=== PATIENT | female | born 1950 | race Caucasian/White ===

== ENCOUNTER 2020-06-17 23:26 | Emergency (ER) | payer OTHER ==
[2020-06-18 00:57] LABS: Absolute Lymphocytes (CBC) 1.1 K/uL (0.7-4.9); Basophils % 0.2 % (0-1.3); Hematocrit 38.6 % (36.0-45.0); Lymphocytes % 9.2 % (15.3-44.8); MPV 8.6 fL (7.6-11.3); RBC Red Blood Cell Count 4.35 M/uL (3.86-4.86)
[2020-06-18 01:09] LABS: Albumin 3.7 g/dL (3.4-5.0); Bilirubin Direct 0.1 mg/dL (0-0.2); Bilirubin Total 0.4 mg/dL (0.2-1.0); Potassium 4.2 mmol/L (3.5-5.1); Protein, Total 6.9 g/dL (6.4-8.2)
[2020-06-18 01:13] LABS: Urine Bacteria <20 /HPF (<20); Urine RBC <5 /HPF (NONE SEEN); Urine Urothelial Cells <5 /HPF (NONE SEEN)
[2020-06-18 01:14] LABS: Urine Specific Gravity 1.025 (1.005-1.030)
[2020-06-18 01:15] LABS: Urine Blood TRACE (NEG); Urine Glucose NEGATIVE (NEG); Urine Protein NEGATIVE (NEG)
[2020-06-18] MEDS ORDERED: KETOROLAC 30 MG/ML INJ ONE (01:59)
--- NOTE | 2020-06-18 02:32 | ER ---
Nurse's Notes [facility] Name: Tresa Zuniga Age: 69 yrs Sex: Female : 1950 Arrival Date: 06/17/2020 Time: 23:40 Bed 16 Private MD: Diagnosis: Calculus of ureter Presentation: 06/17 23:51 Chief complaint: Patient states: she is having right lower abdominal pain radiating to bb the back since approx 1500 today with nausea, pt has hx of kidney stones. Coronavirus screen: At this time, the client does not indicate any symptoms associated with coronavirus-19. Ebola Screen: No symptoms or risks identified at this time. Initial Sepsis Screen: Does the patient meet any 2 criteria? No. Patient's initial sepsis screen is negative. Does the patient have a suspected source of infection? No. Patient's initial sepsis screen is negative. Risk Assessment: Do you want to hurt yourself or someone else? Patient reports no desire to harm self or others. Onset of symptoms was June 17, 2020. 23:51 Method Of Arrival: Ambulatory bb 23:51 Acuity: HOLLAND 3 bb Triage Assessment: 23:54 General: Appears uncomfortable, Behavior is calm, cooperative. Pain: Complains of pain bb in abdomen Pain currently is 5 out of 10 on a pain scale. Neuro: Level of Consciousness is awake, alert, obeys commands, Oriented to person, place, time, situation. Respiratory: Respiratory effort is even, unlabored. GI: Abdomen is non-distended, Reports lower abdominal pain, nausea. Derm: Skin is pink, warm \T\ dry. Musculoskeletal: Circulation, motion, and sensation intact. Historical: - Allergies: 23:54 No Known Allergies; bb - Home Meds: 23:54 losartan oral oral [Active]; Allopurinol Oral [Active]; Vesicare oral oral [Active]; bb - PMHx: 23:54 Hypertension; Kidney stones; bb - PSHx: 23:54 Lithotripsy; Hysterectomy; ; bb - Immunization history:: Adult Immunizations up to date. - Social history:: Smoking status: Patient denies any tobacco usage or history of. Screenin/23 00:00 Abuse screen: Denies threats or abuse. Nutritional screening: No deficits noted. jb4 Tuberculosis screening: No symptoms or risk factors identified. Fall Risk None identified. Assessment: 00:00 General: Appears in no apparent distress. uncomfortable, Behavior is calm, cooperative, jb4 appropriate for age. Pain: Complains of pain in right low back Pain radiates to right lower quadrant Pain currently is 8 out of 10 on a pain scale. Neuro: Level of Consciousness is awake, alert, obeys commands, Oriented to person, place, time, situation. Cardiovascular: Patient's skin is warm and dry. Respiratory: Airway is patent Respiratory effort is even, unlabored. GI: Abdomen is round non-distended. : No signs and/or symptoms were reported regarding the genitourinary system. EENT: No signs and/or symptoms were reported regarding the EENT system. Derm: Skin is intact, Skin is pink, warm \T\ dry. Musculoskeletal: Circulation, motion, and sensation intact. Range of motion: intact in all extremities. 01:00 Reassessment: Patient appears in no apparent distress at this time. Patient and/or jb4 family updated on plan of care and expected duration. Pain level reassessed. Patient is alert, oriented x 3, equal unlabored respirations, skin warm/dry/pink. 02:00 Reassessment: Patient appears in no apparent distress at this time. Patient and/or jb4 family updated on plan of care and expected duration. Pain level reassessed. Patient is alert, oriented x 3, equal unlabored respirations, skin warm/dry/pink. Patient states feeling better. 02:50 Reassessment: Patient appears in no apparent distress at this time. Patient and/or jb4 family updated on plan of care and expected duration. Pain level reassessed. Patient is alert, oriented x 3, equal unlabored respirations, skin warm/dry/pink. Vital Signs: 06/17 23:51 BP 166 / 82; Pulse 76; Resp 16 S; Temp 98.5(O); Pulse Ox 96% on R/A; Weight 111.13 kg bb (R); Height 5 ft. 11 in. (180.34 cm) (R); Pain 09/02; 06/18 00:50 BP 148 / 67; Pulse 63; Resp 16; Pulse Ox 96% on R/A; jb4 01:45 BP 153 / 89; Pulse 63; Resp 18; Pulse Ox 97% on R/A; jb4 02:30 BP 116 / 97; Pulse 64; Resp 16; Pulse Ox 96% on R/A; jb4 06/17 23:51 Body Mass Index 34.17 (111.13 kg, 180.34 cm) ED Course: 06/17 23:40 Patient arrived in ED. cf2 23:52 Triage completed. bb 23:54 Arm band placed on Patient placed in an exam room, on a stretcher, on pulse oximetry. bb 06/18 00:00 Patient has correct armband on for positive identification. Bed in low position. Call jb4 light in reach. Side rails up X 1. Pulse ox on. NIBP on. 00:12 Price Fernandez MD is Attending Physician. tw4 00:12 Nacho Fong, ZAHEER is Primary Nurse. jb4 00:38 Initial lab(s) drawn, by ca, sent to lab. Urine collected: clean catch specimen, clear. jb4 Inserted saline lock: 20 gauge in left antecubital area, using aseptic technique. Blood collected. 01:41 CT Stone Protocol In Process Unspecified. EDMS 02:31 Shawn Palma MD is Referral Physician. tw4 02:51 No provider procedures requiring assistance completed. IV discontinued, intact, jb4 bleeding controlled, No redness/swelling at site. Pressure dressing applied. Administered Medications: 01:45 Drug: Ketorolac 15 mg Route: IVP; Site: left antecubital; jb4 02:40 Follow up: Response: No adverse reaction; Pain is decreased; RASS: Alert and Calm (0) jb4 02:40 Not Given (Patient Refused): morphine 4 mg IVP once; RASS on ADMIN: Combtv4, Very jb4 Agttd3, Agttd2, Rstlss1, AlertClm0, Drwsy-1, Lt Sdtn-2, Mod Sdtn-3, Dp Sdtn-4, UnArsble-5 02:40 Not Given (Patient Refused): Zofran (Ondansetron) 4 mg IVP once; over 2 minutes jb4 Outcome: 02:31 Discharge ordered by . tw4 02:51 Discharged to home ambulatory. jb4 02:51 Condition: stable 02:51 Discharge instructions given to patient, Instructed on discharge instructions, follow up and referral plans. medication usage, Demonstrated understanding of instructions, follow-up care, medications, Prescriptions given X 4. 02:51 Patient left the ED. jb4 Signatures: Dispatcher [employer] EDZara Ricci RN RN bb Bryson, James, RN RN jb4 Price Fernandez MD MD tw4 Keiry Michelle 2
--- NOTE | 2020-06-18 02:32 | EDPHYS ---
Physician Documentation [facility] Name: Tresa Zuniga Age: 69 yrs Sex: Female : 1950 Arrival Date: 06/17/2020 Time: 23:40 Bed 16 Private MD: ED Physician Price Fernandez HPI: 06/18 04:32 This 69 yrs old Female presents to ER via Ambulatory with complaints of RT tw4 LOWER BACK PAIN, Abdominal Pain. 04:32 The patient presents with abdominal pain right lower quadrant. Onset: The tw4 symptoms/episode began/occurred today. The symptoms radiate to the left flank. Associated signs and symptoms: none. The symptoms are described as sharp. Modifying factors: The symptoms are alleviated by nothing, the symptoms are aggravated by nothing. The patient has not experienced similar symptoms in the past. Historical: - Allergies: 06/17 23:54 No Known Allergies; bb - Home Meds: 23:54 losartan oral oral [Active]; Allopurinol Oral [Active]; Vesicare oral oral [Active]; bb - PMHx: 23:54 Hypertension; Kidney stones; bb - PSHx: 23:54 Lithotripsy; Hysterectomy; ; bb - Immunization history:: Adult Immunizations up to date. - Social history:: Smoking status: Patient denies any tobacco usage or history of. ROS: 06/18 04:32 Constitutional: Negative for fever, chills, and weight loss, Eyes: Negative for injury, tw4 pain, redness, and discharge, Cardiovascular: Negative for chest pain, palpitations, and edema, Respiratory: Negative for shortness of breath, cough, wheezing, and pleuritic chest pain, Abdomen/GI: Negative for abdominal pain, nausea, vomiting, diarrhea, and constipation, MS/Extremity: Negative for injury and deformity, Skin: Negative for injury, rash, and discoloration, Neuro: Negative for headache, weakness, numbness, tingling, and seizure. Back: Positive for flank pain, on the left. Exam: 04:32 Constitutional: This is a well developed, well nourished patient who is awake, alert, tw4 and in no acute distress. Head/Face: Normocephalic, atraumatic. Chest/axilla: Normal chest wall appearance and motion. Nontender with no deformity. No lesions are appreciated. Cardiovascular: Regular rate and rhythm with a normal S1 and S2. No gallops, murmurs, or rubs. Normal PMI, no JVD. No pulse deficits. Respiratory: Lungs have equal breath sounds bilaterally, clear to auscultation and percussion. No rales, rhonchi or wheezes noted. No increased work of breathing, no retractions or nasal flaring. Abdomen/GI: Soft, non-tender, with normal bowel sounds. No distension or tympany. No guarding or rebound. No evidence of tenderness throughout. Skin: Warm, dry with normal turgor. Normal color with no rashes, no lesions, and no evidence of cellulitis. MS/ Extremity: Pulses equal, no cyanosis. Neurovascular intact. Full, normal range of motion. Neuro: Awake and alert, GCS 15, oriented to person, place, time, and situation. Cranial nerves II-XII grossly intact. Motor strength 5/5 in all extremities. Sensory grossly intact. Cerebellar exam normal. Normal gait. 04:32 Back: pain, that is mild, ROM is normal. Vital Signs: 06/17 23:51 BP 166 / 82; Pulse 76; Resp 16 S; Temp 98.5(O); Pulse Ox 96% on R/A; Weight 111.13 kg bb (R); Height 5 ft. 11 in. (180.34 cm) (R); Pain 5/10; 06/18 00:50 BP 148 / 67; Pulse 63; Resp 16; Pulse Ox 96% on R/A; jb4 01:45 BP 153 / 89; Pulse 63; Resp 18; Pulse Ox 97% on R/A; jb4 02:30 BP 116 / 97; Pulse 64; Resp 16; Pulse Ox 96% on R/A; jb4 06/17 23:51 Body Mass Index 34.17 (111.13 kg, 180.34 cm) bb MDM: 00:12 Patient medically screened. tw4 04:34 Differential diagnosis: Peptic Ulcer Disease, Perf. Duodenal Ulcer, Perf. Gastric tw4 Ulcer, Peritonitis, Pyelonephritis. Data reviewed: vital signs, nurses notes. Data interpreted: Pulse oximetry: Interpretation: normal. Counseling: I had a detailed discussion with the patient and/or guardian regarding: the historical points, exam findings, and any diagnostic results supporting the discharge/admit diagnosis. Medication response: morphine relieved the patient's pain. Symptoms have resolved, Toradol relieved patient's pain. The symptoms have resolved. Special discussion: I discussed with the patient/guardian in detail that at this point there is no indication for admission to the hospital. It is understood, however, that if the symptoms persist or worsen the patient needs to return immediately for re-evaluation. 06/18 00:12 Order name: Basic Metabolic Panel tw4 06/18 00:12 Order name: CBC with Diff tw4 06/18 00:12 Order name: Hepatic Function tw4 06/18 00:12 Order name: Lipase tw4 06/18 00:12 Order name: Urine Microscopic Only 06/18 00:48 Order name: Urine Dipstick--Ancillary (enter results) ar5 06/18 00:12 Order name: IV Saline Lock; Complete Time: 00:57 4 06/18 00:12 Order name: Labs collected and sent; Complete Time: 00:58 06/18 00:12 Order name: Urine Dipstick-Ancillary (obtain specimen); Complete Time: 00:46 06/18 00:49 Order name: Urine Dipstick-Ancillary EDMS 06/18 01:06 Order name: CT Stone Protocol tw4 Administered Medications: 01:45 Drug: Ketorolac 15 mg Route: IVP; Site: left antecubital; jb4 02:40 Follow up: Response: No adverse reaction; Pain is decreased; RASS: Alert and Calm (0) jb4 02:40 Not Given (Patient Refused): morphine 4 mg IVP once; RASS on ADMIN: Combtv4, Very jb4 Agttd3, Agttd2, Rstlss1, AlertClm0, Drwsy-1, Lt Sdtn-2, Mod Sdtn-3, Dp Sdtn-4, UnArsble-5 02:40 Not Given (Patient Refused): Zofran (Ondansetron) 4 mg IVP once; over 2 minutes jb4 Disposition: 06/18/20 02:31 Discharged to Home. Impression: Calculus of ureter. - Condition is Stable. - Discharge Instructions: Renal Colic, Kidney Stones, [id number]. - Prescriptions for Tylenol- Codeine #3 300-30 mg Oral Tablet - take 2 tablet by ORAL route every 6 hours As needed; 30 tablet. Zofran 4 mg Oral Tablet - take 1 tablet by ORAL route every 12 hours As needed; 6 tablet. Flomax 0.4 mg Oral Capsule, Sust. Release 24 hr - take 1 capsule by ORAL route once daily 1/2 hour following the same meal each day; 30 capsule. Tramadol 50 mg Oral Tablet - take 1 tablet by ORAL route every 8 hours as needed; 12 tablet. - Medication Reconciliation Form, Thank You Letter, Antibiotic Education, Prescription Opioid Use form. - Follow up: Private Physician; When: Upon discharge from the Emergency Department; Reason: Recheck today's complaints, Continuance of care, Re-evaluation by your physician. Follow up: Shawn Palma MD; When: Upon discharge from the Emergency Department; Reason: Recheck today's complaints, Continuance of care, Re-evaluation by your physician. - Problem is new. - Symptoms have improved. Signatures: Dispatcher [employer] EDMS Zara Carias RN RN Nacho Bennett RN RN jb4 Price Fernandez MD MD tw4 Corrections: (The following items were deleted from the chart) 02:31 02:31 06/18/2020 02:31 Discharged to Home. Impression: Calculus of ureter. Condition is tw4 Stable. Forms are Medication Reconciliation Form, Thank You Letter, Antibiotic Education, Prescription Opioid Use. Follow up: Private Physician; When: Upon discharge from the Emergency Department; Reason: Recheck today's complaints, Continuance of care, Re-evaluation by your physician. Problem is new. Symptoms have improved. tw4 02:51 02:31 06/18/2020 02:31 Discharged to Home. Impression: Calculus of ureter. Condition is jb4 Stable. Forms are Medication Reconciliation Form, Thank You Letter, Antibiotic Education, Prescription Opioid Use. Follow up: Private Physician; When: Upon discharge from the Emergency Department; Reason: Recheck today's complaints, Continuance of care, Re-evaluation by your physician. Follow up: Shawn Palma; When: Upon discharge from the Emergency Department; Reason: Recheck today's complaints, Continuance of care, Re-evaluation by your physician. Problem is new. Symptoms have improved. tw4
[2020-06-18 05:04] VITALS: TEMP 98.5
[2020-06-18 05:08] VITALS: BP 116/97; O2SAT 96
--- NOTE | 2020-06-18 13:58 | RAD REPORT ---
EXAM DESCRIPTION: CT - Stone Protocol - 06/18/2020 6:34 am CLINICAL HISTORY: PAIN TECHNIQUE: Contiguous axial images obtained through the abdomen and pelvis without IV contrast. Brian nal and sagittal reformatted images were provided. This exam was performed according to our departmental dose-optimization program, which includes autom ated exposure control, adjustment of the mA and/or kV according to patient size and/or use of iterati ve reconstruction technique. COMPARISON: None available for comparison. FINDINGS: Lung bases: Bibasilar subsegmental atelectasis/pleural parenchymal scar. Right lower lobe calcified granuloma. The heart is enlarged. Small hiatal hernia. Liver: 1.4 cm right posterior hepatic cyst. Gallbladder and biliary system: Unremarkable Pancreas: Grossly unremarkable Spleen: Grossly unremarkable Adrenals: Unremarkable Kidneys: Moderate right hydronephrosis and proximal hydroureter. 7 mm proximal right ureteral calculu s (series 201 image 86, series 202 image 53 and series 203 image 53). Parapelvic cysts on the left. Bowel: No obstruction. No appreciable mucosal thickening. Appendix: Normal caliber appendix. No findings to suggest acute appendicitis. Urinary bladder: Unremarkable Reproductive: There has been a hysterectomy. No adnexal cysts or masses are identified. Lymph nodes: No pathologically enlarged lymph nodes. Peritoneum: No focal fluid collection. No free air. Vessels: No abdominal aortic aneurysm. Abdominal wall: Small fat-containing umbilical hernia. Bones: Multilevel spondylosis. No acute fracture. IMPRESSION: 1. Moderately obstructing 7 mm proximal right ureteral calculus. 2. Other findings as above. Electronically signed by: Yumiko Jane MD 06/18/2020 1:59 AM MARKET RISK ANALYST Due to temporary technical issues with the PACS/Fluency reporting system, reports are being signed by the in house radiologists without review as a courtesy to insure prompt reporting. The interpreting radiologist is fully responsible for the content of the report.
== END 2020-06-18 02:51 | disposition home or self-care (01) ==
LOC: ER 23:26
DX: N20.1 Calculus of ureter (principal); I10 Essential (primary) hypertension; Z87.442 Personal history of urinary calculi
CPT/HCPCS: 36415; 74176; 76377; 80048; 80076; 81003; 81015; 83690; 85025; 96374; 99284

== ENCOUNTER 2020-06-19 10:31 | Day surgery (SDC) | payer OTHER ==
[2020-06-19] MEDS ORDERED: AMPICILLIN SODIUM 2 GM in NA CHLORIDE 0.9% 100 ML IVPB ONE (11:00)
[2020-06-19] MEDS ORDERED: Gentamicin Inj 320 MG in NA CHLORIDE 0.9% 100 ML IVPB ONE (11:00)
[2020-06-19] MEDS ORDERED: FENTANYL CITR 100 MCG/2 ML ONE ×2 (11:34→13:47)
[2020-06-19] MEDS ORDERED: MIDAZOLAM HCL 2 MG/2 ML INJ ONE (11:34)
[2020-06-19] MEDS ORDERED: propofoL 200 MG/20 ML VIAL IV ONE ×2 (11:34→13:46)
[2020-06-19] MEDS ORDERED: LIDOCAINE 1% MPF 5 ML VIAL ONE ×2 (11:34→13:46)
--- NOTE | 2020-06-19 11:35 | RAD REPORT ---
EXAM DESCRIPTION: Tushar Martinez (2 Views)06/19/2020 11:04 am CLINICAL HISTORY: Preop COMPARISON: 2017 FINDINGS: Calcified granuloma left lung. The lungs appear clear of acute infiltrate. The heart is borderline enlarged IMPRESSION: No acute abnormalities displayed
[2020-06-19] MEDS ORDERED: CEFAZOLIN/SWI 1gm 1 GM/10 ML SYR ONE (13:46)
[2020-06-19] MEDS ORDERED: Ringers Lactate 1,000 ML IV ONE (13:46)
[2020-06-19] MEDS ORDERED: PHENAZOPYRIDINE 100MG TAB PO ONE ×2 (15:11→16:21)
[2020-06-19] MEDS ORDERED: HYDROCODONE/APAP 5/325 MG TAB PO PRN (15:11)
--- NOTE | 2020-06-19 15:17 | RAD REPORT ---
EXAM DESCRIPTION: RAD - Urethrocystogrphy Retrograde - 06/19/2020 3:12 pm CLINICAL HISTORY: CYSTO COMPARISON: PELVIS dated 01/28/2015 FINDINGS: Total fluoro time: 0.9 minutes.
[2020-06-19 17:32] VITALS: O2SAT 98
[2020-06-19 18:07] VITALS: BP 122/52; TEMP 97.2
--- NOTE | 2020-06-19 19:40 | OP ---
Surgeon: MARILYN CHAVEZ Preoperative Diagnosis: 1) Right obstructive ureterolithiasis 2) Complicated urinary tract infection. Postoperative Diagnosis: 1) Right obstructive ureterolithiasis 2) Complicated urinary tract infection. Principal Procedure: 1. Cystoscopy. 2. Right retrograde pyelography. 3. Right ureteral stent placement. Indication For Procedure: Ms. Zuniga presented to the Urology Clinic today in followup of her emergency department visit 3 days ago with an obstructing right ureteral calculus, approximately 7 mm in diameter. She was discharged from the emergency department, but in the interim had a fever up to 101 degrees Fahrenheit. Because of the concern for possible development of sepsis associated with an obstructing calculus, she was recommended for urgent right ureteral stent placement. Procedure In Detail: The patient was consented in the preoperative holding area before being transferred to the operative suite where general anesthesia using an LMA was induced. She was given gentamicin 320 mg and ampicillin 2 g IV antimicrobial prophylaxis. She was placed in the lithotomy position, padded and secured to the table appropriately. Her genitalia was prepped using Hibiclens, and she was draped in standard fashion. The case was begun using a 22-Cuban rigid cystoscope to traverse the urethra and into the bladder with ease. The bladder was decompressed of a relatively clear urine with minimal debris. It was also surveyed in its entirety, and there were no mucosal lesions, foreign bodies, or stones noted throughout. The ureteral orifices were orthotopic in location, and the right ureteral orifice was then cannulated using the tip of a Sensor wire to guide entry of a 5-Cuban ureteral access catheter. Right retrograde pyelography: Using a 70:30 mixture of Omnipaque and saline, contrast was injected via the lumen of the 5-Cuban ureteral access catheter and did propagate up the ureter to a point of obstruction in the mid ureter. With additional bolus of contrast injection, we were able to get the contrast and navigate around the point of obstruction and eventually enter the pelvis and lower pole of the kidney. The evident obstruction in the mid ureter did seem to be dislodged at that point at least into the proximal ureter where a filling defect was noted. I then passed a Sensor wire via the 5-Cuban ureteral access catheter and observed good coil fluoroscopically within the upper pole of the kidney. I then passed a 6-Cuban x 26 cm double-J stent into the right ureter and observed a coil observed fluoroscopically in the upper pole of the right kidney. An additional coil was observed cystoscopically within the bladder. The bladder was then decompressed of fluid and urine, and there was efflux of a relatively clear but somewhat cloudy appearing urine from the right ureteral stent. The patient was then taken out of the lithotomy position, awakened from general anesthesia, transferred to a stretcher, and then transferred to the recovery room in good condition. Complications: None. Discharge Disposition: She will be observed in the recovery room and explicit attention will be given to any signs of instability with tachycardia, hypotension, or development of fever. Either of these would be signs of potential urosepsis for which the patient would need to be admitted and managed with IV antimicrobials while we await the results of urine culture sent from the Urology Clinic earlier today. She otherwise has been provided a prescription for ciprofloxacin orally to be taken for at least 10 days via the office and would be subject to discharge if she remains clinically stable in the next couple of hours following the procedure. Subsequent followup should become in the Urology Clinic within the next few weeks and we will plan subsequent management with right ureteroscopy, laser lithotripsy, and stent exchange after that. CÉSAR/MARIELLA Voice ID: [id number] Report ID: [id number] YOKO
--- NOTE | 2020-06-20 05:38 | EKG ---
Test Date: 2020-06-19 Test Time: 11:04:37 Process Coordinator: LUCERO MEASUREMENT RESULTS: Intervals: Rate: 68 AK: 160 QRSD: 86 QT: 436 QTc: 463 [place]: P: 59 AK: 160 QRS: 0 T: 20 INTERPRETIVE STATEMENTS: Normal sinus rhythm Low voltage QRS Cannot rule out Anterior infarct, age undetermined Abnormal ECG Compared to ECG 08/01/2003 08:18:00 Low QRS voltage now present Sinus bradycardia no longer present Myocardial infarct finding still present Electronically Signed On 06-20-20 05:35:42 TRACTOR ENGINE MECHANIC by Lefty Tian
== END 2020-06-19 18:15 | disposition home or self-care (01) ==
LOC: OR 10:31
PROVIDERS: ATTEND Urology
PROC: 0T768DZ Dilation of Right Ureter with Intraluminal Device, Via Natural or Artificial Opening Endoscopic (ICD-10-PCS; principal; 2020-06-19 12:00)
DX: N20.1 Calculus of ureter (principal); N39.0 Urinary tract infection, site not specified; Z20.822 Contact with and (suspected) exposure to COVID-19
CPT/HCPCS: 93005; 87088; 87086; 71046; 74450; 51610; 52332; U0002; J2704; J1580; J3010 ×2; J0690; J7120; J0290; J2250

== ENCOUNTER 2020-07-23 08:02 | Day surgery (SDC) | payer OTHER ==
[~2020-07-23 08:02] MED LIST: AMPICILLIN SODIUM 2 GM in NA CHLORIDE 0.9% 100 ML IVPB SCH; Gentamicin Inj 240 MG in NA CHLORIDE 0.9% 100 ML IV SCH
[2020-07-23] MEDS ORDERED: Ringers Lactate 1,000 ML IV ONE (08:36)
[2020-07-23] MEDS ORDERED: FENTANYL CITR 100 MCG/2 ML ONE (09:29)
[2020-07-23] MEDS ORDERED: propofoL 200 MG/20 ML VIAL IV ONE (09:30)
[2020-07-23] MEDS ORDERED: KETOROLAC 30 MG/ML INJ ONE (09:30)
[2020-07-23] MEDS ORDERED: MIDAZOLAM HCL 2 MG/2 ML INJ ONE (09:30)
[2020-07-23] MEDS ORDERED: dexAMETHasone 10 MG/ML VIAL ONE (09:30)
[2020-07-23] MEDS ORDERED: LIDOCAINE 2% MPF 5 ML VIAL ONE (09:30)
[2020-07-23] MEDS ORDERED: ONDANSETRON 4 MG/2 ML VIAL ONE (09:30)
[2020-07-23] MEDS ORDERED: GLYCOPYRROLATE 0.2 MG/ML SYR ONE (11:01)
[2020-07-23] MEDS ORDERED: Mastisol Adhesive Liq ONE (11:35)
--- NOTE | 2020-07-23 11:43 | RAD REPORT ---
EXAM DESCRIPTION: RAD - Urethrocystogrphy Retrograde - 07/23/2020 11:35 am CLINICAL HISTORY: CYSTO COMPARISON: Urethrocystogrphy Retrograde dated 06/19/2020 FINDINGS: Total fluoro time: 18 seconds
--- NOTE | 2020-07-23 12:25 | OP ---
Surgeon: MARILYN CHAVEZ Preoperative Diagnosis: Right obstructive ureterolithiasis. Postoperative Diagnosis: Right obstructive ureterolithiasis. Principal Procedures: 1.Cystoscopy. 2.Right ureteroscopy with laser lithotripsy. 3.Right ureteral stent exchange. Indication For Procedure: Ms. Zuniga presented to the Urology Clinic with a febrile complication of an obstructing 7 mm proximal right ureteral calculus. She underwent urgent cystoscopy and right uret eral stent placement and presents today for definitive management of her stones. Preoperative urine culture obtained on 07/18/2020 revealed less than 10,000 colonies of mixed vivek. Procedure In Detail: The patient was consented in the preoperative holding area before being transfe rred to the operative suite where general anesthesia was induced. She was given ampicillin 2 g and g entamicin 240 mg IV antimicrobial prophylaxis. Pneumo boots were provided for DVT prophylaxis. She was placed in the lithotomy position, padded and secured to the table appropriately. The case was be gun using a 22-Sudanese rigid cystoscope to traverse the urethra and enter her bladder with ease. Her bladder was decompressed of urine, and the stent was noted to emanate from the right ureteral orifice . It was grasped using an alligator grasper and delivered to the meatus. A Sensor wire was passed v ia the stent and did progress fluoroscopically where it coiled in the putative renal pelvis. I then passed a dual-lumen catheter into the mid distal ureter and performed a retrograde pyelogram via the second lumen of the dual-lumen catheter. Right retrograde pyelography: Using a 70:30 mixture of Omnipaque and saline, contrast was injected via the second lumen of the dual -lumen catheter and did confirm adequate intraureteral lumen location of the Sensor wire and catheter s. As a result, the dual-lumen catheter was removed, and I passed under direct vision a semi-rigid u reteroscope via the urethra and up to the distal into the mid and proximal ureter until the ureterope lvic junction was visualized. No stone was visualized along the course of the ureter as it had likel y been displaced into the renal pelvis. As a result, I then passed a Bentson guidewire via the semi- rigid ureteroscope under direct vision. I then passed a flexible digital ureteroscope over the Bents on guidewire into the upper pole of the kidney. I surveyed each of the calices of the kidney careful ly until I identified what was likely an approximately 6 or 7 mm calculus. I then employed a 271 nm laser fiber and power settings of 0.8 joules and 15 hertz to quickly dust the stone into submillimete r sized fragments. I then again resurveyed each of the calices of the kidney after injecting contras t via the ureteroscope to confirm all calices had been visualized. With no additional stone burden o f any significance noted other than that dusted from the prior stone, I then surveyed the renal pelvi s down through the proximal, mid, and distal ureter before removing the ureteroscope. I then back-lo aded the 22-Sudanese rigid cystoscope over the indwelling safety wire and placed a 6-Sudanese by 24 cm do uble-J ureteral stent into the right collecting system with a coil observed fluoroscopically within t he renal pelvis and 1 cystoscopically within the bladder. The stent was left on it string for ease o f removal later. The patient's bladder was then decompressed of fluid and urine, and she was taken o ut of the lithotomy position. She was then awakened from general anesthesia, transferred to a [facility] and then transferred to the recovery room in good condition. Complications: None. Discharge Disposition: She may follow up in the Urology Clinic as soon as Wednesday of this week with n maureen practitionerAshley for removal of the stent on its string. If Wednesday is not an option, is reasonable or perhaps Wednesday for right ureteral tethered stent extraction. She should be pro vided a dose of either ciprofloxacin or Bactrim for antimicrobial prophylaxis at the time of stent extraction. CÉSAR/MODL Voice ID: [id number] Report ID: [id number]
[2020-07-23 13:12] VITALS: BP 116/50; TEMP 96.4; O2SAT 100
== END 2020-07-23 13:00 | disposition home or self-care (01) ==
LOC: OR 08:02
PROVIDERS: ATTEND Urology
PROC: 0T768DZ Dilation of Right Ureter with Intraluminal Device, Via Natural or Artificial Opening Endoscopic (ICD-10-PCS; 2020-07-23)
PROC: 0TF68ZZ Fragmentation in Right Ureter, Via Natural or Artificial Opening Endoscopic (ICD-10-PCS; principal; 2020-07-23 09:30)
DX: N20.1 Calculus of ureter (principal); Z20.822 Contact with and (suspected) exposure to COVID-19
CPT/HCPCS: 87088; 87086; 74450; 51610; 52356; U0002; J2704; J1580; J2250; J3010; J1100; J7120; J2405; J0290

== ENCOUNTER 2022-04-05 16:38 | Emergency (ER) | payer OTHER ==
--- OUTSIDE RECORDS SUMMARY | 2022-04-05 16:41 | XMS REPORT | Continuity of Care Document ---
:1950 Author Organization [facility] t Address [address] [place] [address] Care Team Providers Name Role Phone DIANNE JEWELL Primary Care Physician Unavailable Ziyad Salgado Attending Clinician Unavailable DIANNE JEWELL Attending Clinician Unavailable LENORA GUPTA Attending Clinician Unavailable Lenora Rodriguez Attending Clinician Dianne Jewell MD Attending Clinician 2, [facility] Attending Clinician Unavailable Soledad Cunningham RN Attending Clinician Unavailable PHYLLIS VÁZQUEZ III Attending Clinician Unavailable Susanne Gregory Attending Clinician SUSANNE OBRIEN Attending Clinician Unavailable DIANNE JEWELL Admitting Clinician Unavailable Payers Payer Name Policy Type Policy Number Effective Date Expiration Date S ketty [facility] [id number] 2020 [facility] 00:00:00 [facility] [id number] 2020 MEDICARE SUPPLEMENT 00:00:00 MEDICARE PART A \T\ [id number] 2020 B 00:00:00 Problems Condition Condition Condition Status Onset Resolution Last Treating Co mments Source Name Details Category Date Date Treatment Clinician Date Essential Essential Disease Active Uni vers hypertensi hypertensi 10-24 it y of on on 00:00: [address] Hypertrigl Hypertrigl Disease Active U nivers yceridemia yceridemia 10-24 it y of 00:00: [address] Overactive Overactive Disease Active U nivers bladder bladder 7- ity of 00:00: [address] Allergies, Adverse Reactions, Alerts Allergy Allergy Status Severity Reaction(s) Onset Inactive Treating Comm ents Source Name Type Date Date Clinician NO KNOWN Drug Active Univers ALLERGIE Class ity of S [facility] Social History Social Habit Start Date Stop Date Quantity Comments Source History SDOH University o f Alcohol Frequency [place] [facility] History SDMT University o f Alcohol Std [place] [facility] Drinks Branch History SDMT University o f Alcohol Binge [place] [facility] Exposure to 2021-11-29 2021-12-09 Not sure University of SARS-CoV-2 00:00:00 10:17:00 [facility] (event) [place] Tobacco use and 2021-12-09 2021-12-09 Smokeless tobacco Un iversity of exposure 00:00:00 00:00:00 non-user [facility] Alcohol intake 2021-12-09 2021-12-09 Current drinker Unive rsity of 00:00:00 00:00:00 of alcohol [facility] (finding) [place] Alcohol Comment 2020-10-24 2020-10-24 occassionally/lorenzo Un iversity of 00:00:00 00:00:00 dom [facility] Sex Ass[birth year] Universit y of 00:00:00 00:00:00 [facility] Smoking Status Start Date Stop Date Source Never smoked tobacco [facility] Medications Ordered Filled Start Stop Current Ordering Indication Dosage Frequency Signature Comments Components Source Medication Medication Date Date Medication? Clinician (SIG) Name Name amoxicillin 2021- No [id number] 1{tbl} Take 1 Univers -clavulanat 12-09 tablet by it y of e 00:00: 04:59 mouth in [place] (AUGMENTIN) 00 :00 the Medical 875-125 mg morning Branch per tablet and 1 tablet in the evening. Do all this for 10 days. aspirin 81 Yes Take by Univ ers mg Cap 5-24 mouth. ity of 08:36: [address] aspirin 81 2021-0 Yes Take by Univ ers mg Cap 5-24 mouth. ity of 08:36: [address] aspirin 81 2021-0 Yes Take by Univ ers mg Cap 5-24 mouth. ity of 08:36: [place] 45 Medical Branch benzonatate 2021- No [id number] 100mg Take 1 Univers 100 mg 3-10 05-24 capsule by ity of capsule 00:00: 00:00 mouth [place] 00 :00 every 8 Medical (eight) Branch hours as needed for Cough. benzonatate 2021- No [id number] 100mg Take 1 Univers 100 mg 3-10 05-24 capsule by ity of capsule 00:00: 00:00 mouth [place] 00 :00 every 8 Medical (eight) Branch hours as needed for Cough. allopurinoL 2020-04 Yes [id number] 300mg Take 1 Univers 300 mg 0-22 tablet by ity of tablet 00:00: mouth [place] 00 daily. Medical Branch losartan 50 2020-04 Yes [id number] 50mg Take 1 Univers mg tablet 0-22 tablet by ity o f 00:00: mouth [place] 00 daily. Medical Branch solifenacin 2020-04 Yes [id number] 10mg Take 1 Univers 10 mg 0-22 tablet by ity of tablet 00:00: mouth [place] 00 daily. Medical Branch allopurinoL 2020-04 Yes [id number] 300mg Take 1 Univers 300 mg 0-22 tablet by ity of tablet 00:00: mouth [place] 00 daily. Medical Branch losartan 50 2020-04 Yes [id number] 50mg Take 1 Univers mg tablet 0-22 tablet by ity o f 00:00: mouth [place] 00 daily. Medical Branch solifenacin 2020-04 Yes [id number] 10mg Take 1 Univers 10 mg 0-22 tablet by ity of tablet 00:00: mouth [place] 00 daily. Medical Branch allopurinoL 2020-04 Yes [id number] 300mg Take 1 Univers 300 mg 0-22 tablet by ity of tablet 00:00: mouth [place] 00 daily. Medical Branch losartan 50 2020-04 Yes [id number] 50mg Take 1 Univers mg tablet 0-22 tablet by ity o f 00:00: mouth [place] 00 daily. Medical Branch solifenacin 2020-04 Yes [id number] 10mg Take 1 Univers 10 mg 0-22 tablet by ity of tablet 00:00: mouth [place] 00 daily. Medical Branch Immunizations Ordered Filled Immunization Date Status Comments [facility] e Immunization Name Name SARS-COV-2 COVID-19 2021-02-21 Completed Unive rsity of MODERNA 0.25ML 00:00:00 [place] Medi sasha BOOSTER VACCINE Branch SARS-COV-2 COVID-19 2021-02-21 Completed Unive rsity of MODERNA 0.25ML 00:00:00 [place] Medi sasha BOOSTER VACCINE Branch SARS-COV-2 COVID-19 2021-02-21 Completed Unive rsity of MODERNA 0.25ML 00:00:00 [facility] sasha BOOSTER VACCINE Branch Influenza High Dose 2021-01-26 Completed Unive rsity of 00:00:00 [facility] Branch Influenza High Dose 2021-01-26 Completed Unive rsity of 00:00:00 [facility] Influenza High Dose 2021-01-26 Completed Unive rsity of 00:00:00 [facility] SARS-COV-2 COVID-19 2020-07-01 Completed Unive rsity of MODERNA VACCINE 00:00:00 [facility] SARS-COV-2 COVID-19 2020-07-01 Completed Unive rsity of MODERNA VACCINE 00:00:00 [facility] ical Branch SARS-COV-2 COVID-19 2020-07-01 Completed Unive rsity of MODERNA VACCINE 00:00:00 [facility] SARS-COV-2 COVID-19 2020-05-27 Completed Unive rsity of MODERNA VACCINE 00:00:00 [facility] ical Branch SARS-COV-2 COVID-19 2020-05-27 Completed Unive rsity of MODERNA VACCINE 00:00:00 [facility] Branch SARS-COV-2 COVID-19 2020-05-27 Completed Unive rsity of MODERNA VACCINE 00:00:00 [facility] Pneumococcal 2019-01-24 Completed University o f Polysaccharide, 00:00:00 [facility] ical PPSV23 (PNEUMOVAX) Branch Pneumococcal 2019-01-24 Completed University o f Polysaccharide, 00:00:00 [facility] ical PPSV23 (PNEUMOVAX) Branch Pneumococcal 2019-01-24 Completed University o f Polysaccharide, 00:00:00 [facility] PPSV[facility] (P[facility]UMOVAX) Branch Zoster Vaccine 2018-08-24 Completed University of Recombinant 00:00:00 [facility] Zoster Vaccine 2018-08-24 Completed University of Recombinant 00:00:00 [facility] Zoster Vaccine 2018-08-24 Completed University of Recombinant 00:00:00 [facility] Zoster Vaccine 2018-05-27 Completed University of Recombinant 00:00:00 [facility] Zoster Vaccine 2018-05-27 Completed University of Recombinant 00:00:00 [facility] Zoster Vaccine 2018-05-27 Completed University of Recombinant 00:00:00 [facility] TDAP 2016-06-24 Completed University of 00:00:00 [facility] TDAP 2016-06-24 Completed University of 00:00:00 [facility] TDAP 2016-06-24 Completed University of 00:00:00 [facility] Pneumococcal 13 2013-01-24 Completed Universit y of Conjugate, PCV13 00:00:00 [facility] dical (Prevnar 13) Branch Pneumococcal 13 2013-01-24 Completed Universit y of Conjugate, PCV13 00:00:00 [facility] dical (Prevnar 13) Branch Pneumococcal 13 2013-01-24 Completed Universit y of Conjugate, PCV13 00:00:00 [facility] dical (Prevnar 13) Branch Vital Signs Vital Name Observation Time Observation Value Comments Source Systolic blood 2021-12-09 17:55:00 125 mm[Hg] Univer sity of pressure [facility] Diastolic blood 2021-12-09 17:55:00 75 mm[Hg] Unive rsity of [facility] Heart rate 2021-12-09 17:55:00 78 /min [facility] Body temperature 2021-12-09 17:55:00 36.56 Yessica [facility] Respiratory rate 2021-12-09 17:55:00 16 /min [facility] Body height 2021-12-09 17:55:[address] [facility] Body weight 2021-12-09 17:55:[address] [facility] BMI 2021-12-09 17:55:00 34.17 kg/m2 [facility] Oxygen saturation in 2021-12-09 17:55:00 96 /min [facility] Arterial blood by [facility] Pulse oximetry Branch Systolic blood 2021-09-16 14:40:00 138 mm[Hg] Univer sity of pressure [facility] Diastolic blood 2021-09-16 14:40:00 77 mm[Hg] [facility] Oxygen saturation in 2021-09-16 14:40:00 97 /min [facility] Arterial blood by [facility] Pulse oximetry Branch Heart rate 2021-09-16 13:42:00 69 /min [facility] Respiratory rate 2021-09-16 13:42:00 18 /min [facility] Body weight 2021-09-16 13:42:[address] [facility] BMI 2021-09-16 13:42:00 34.45 kg/m2 [facility] Procedures This patient has no known procedures. Encounters Start End Encounter Admission Attending Care Care Encounter Source Date/Time Date/Time Type Type Clinicians Facility Department ID 2021-05-21 Outpatient Ziyad Salgado [facility] [id number] Common 12:47:46 [id number] 2021-05-21 Out[facility] [id number] Common 12:46:55 [id number] [facility] 2021-05-21 Outpatient [facility] [id number] Common 12:46:47 [id number] [facility] 2021-05-21 Outpatient [facility] [id number] Common 12:32:44 [id number] [facility] 2022-05-19 2022-05-19 Outpatient Kavin JEWELL [facility] [id number] Univers 08:40:00 08:40:00 DIANNE [facility] 2022-05-19 2022-05-19 Outpatient Kavin JEWELL [facility] [id number] Univers 08:40:00 08:40:00 DIANNE [facility] 2021-12-09 2021-12-09 Outpatient Kavin GUPTA [facility] [id number] Univers 13:00:00 13:05:47 [facility] 2021-12-09 2021-12-09 Urgent Duarte [facility] [id number] Univers 13:00:00 13:05:47 [facility] [id number] it y of [place] [id number] Dilip as RENETTA?BLEA [phone] Hi randolph [facility] [address] [place] MEDICAL OFFICE BUILDING 2021-09-16 2021-09-16 Office Best [facility] [id number] Univers 08:40:00 09:41:21 Visit Dianne A CLARITZA [id number] ity [facility] [id number] [phone] Hi randolph [facility] [address] Branch [facility] 2021-09-16 2021-09-16 Outpatient R BEST [facility] [id number] Univers 08:40:00 09:41:21 [facility] 2021-09-16 2021-09-16 [id number] Univers 08:40:00 08:40:00 DIANNE gore [facility] 2021-09-16 2021-09-16 Outpatient R BEST [facility] [id number] Univers 08:40:00 08:40:00 DIANNE [facility] 2021-09-09 2021-09-09 Iuss Acoustic Analyst 2, Adc Lab [facility] [id number] Univers 09:00:00 09:15:00 Visit Dianne Jewell [id number] ity [facility] [id number] [phone] Hi randolph [facility] 353 [facility] 2021-09-09 2021-09-09 [facility] [id number] Univers 09:00:00 09:00:00 [facility] 2021-07-04 2021-07-04 Letter KENNA Cunningham [id number] Univers 00:00:00 00:00:00 (Out) Soledad BURNETT [id number] it y of [facility] [id number] Dilip as [id number] [address] 2021-07-03 2021-07-03 Outpatient R KING EDITH [facility] [id number] Univers 09:00:00 09:30:56 PHYLLIS ity [facility] 2021-05-16 2021-05-16 [facility] [id number] Univers 00:00:00 00:00:00 Dianne WHARTON [id number] ity [facility] [id number] Dilip as RENETTA?BLEA [id number] [facility] [address] [place] MEDICAL OFFICE BUILDING 2021-04-30 2021-04-30 [id number] Univers 09:05:24 23:59:00 DIANNE gore [facility] 2021-04-30 2021-04-30 [facility] [id number] Univers 09:05:24 23:59:00 Encounter Dianne JERRY [id number] [facility] [id number] [id number] [facility] [address] Branch 2021-02-14 2021-02-14 [id number] Univers 09:00:00 10:21:03 DIANNE gore [facility] 2021-02-14 2021-02-14 [facility] 1.2.840.114 [id number] Univers 08:55:08 10:21:03 Visit Dianne JERRY [id number] [facility] [id number] [facility] [phone] [facility] [address] Branch BUILDING 2021-02-14 2021-02-14 [facility] [id number] Univers 09:20:00 10:19:56 DIANNE gore [facility] 2021-02-14 2021-02-14 [facility] 1.2.840.114 [id number] Univers 08:55:35 10:19:56 Visit Dianne JERRY [id number] ity of [id number] [phone] Hi dical NAL 231 [facility] 2021-02-14 2021-02-14 Outpatient Kavin JEWELL [facility] [id number] Univers 09:00:00 09:00:00 DIANNE gore [facility] 2021-01-22 2021-01-22 Refill Rajan [facility] 1.2.840.114 [id number] [facility] 00:00:00 00:00:00 Susanne Jerry [id number] it[place] of [id number] [id number] Hi dical nal 044 [facility] 2021-01-21 2021-01-21 Outpatient Kavin JEWELL [facility] [id number] [facility] 09:20:00 09:20:00 DIANNE gore [facility] 2020-10-24 2020-10-24 Iuss Acoustic Analyst 2, Adc Lab [facility] 1.2.840.114 [id number] Univers 09:46:23 10:01:23 Visit Susanne Obrien [id number] [id number] [phone] Hi dical nal 353 [facility] 2020-10-24 2020-10-24 Office Rajan [facility] 1.2.840.114 [id number] Univers 08:39:18 09:09:18 Visit Susanne Jerry [id number] ity [id number] Profess[place] [phone] Hi dical nal 044 [facility] 2020-10-24 2020-10-24 Outpatient Kavin OBRIEN [facility] [id number] [facility] 09:00:00 09:00:00 SUSANNE gore o f [facility] Results This patient has no known results.
[2022-04-05] MEDS ORDERED: KETOROLAC 30 MG/ML INJ ONE (17:20)
[2022-04-05] MEDS ORDERED: NA CHLORIDE 0.9% 1,000 ML ONE (17:20)
[2022-04-05 17:38] LABS: Absolute Lymphocytes (CBC) 1.4 K/uL (0.7-4.9); Hematocrit 40.9 % (36.0-45.0); Lymphocytes % 17.9 % (15.3-44.8); MCV 89.6 fL (80-100); MPV 7.9 fL (7.6-11.3); RBC Red Blood Cell Count 4.56 M/uL (3.86-4.86)
[2022-04-05 17:54] LABS: Albumin 3.9 g/dL (3.4-5.0); Bilirubin Total 0.3 mg/dL (0.2-1.0); Potassium 3.9 mmol/L (3.5-5.1); Protein, Total 6.9 g/dL (6.4-8.2)
--- NOTE | 2022-04-05 18:57 | RAD REPORT ---
EXAM DESCRIPTION: CTAbdomen Pelvis W Contrast - 04/05/2022 6:43 pm CLINICAL HISTORY: abdominal pain/ back pain COMPARISON: CT 06/18/2020 TECHNIQUE: CT of the abdomen and pelvis was performed. All CT scans are performed using dose optimization technique as appropriate and may include automated exposure control or mA/KV adjustment according to patient size. FINDINGS: Lower chest: No acute abnormality. Mild circumferential thickened distal esophagus which c ould reflect mild esophagitis. Liver: Several low-density liver lesions are noted which are likely benign. Biliary: No biliary ductal dilatation. Stomach: No significant focal abnormality. Duodenum: No significant focal abnormality. Pancreas: No significant abnormality. Spleen: No significant abnormality. Adrenal: No suspicious lesions. Kidney/ureter: No hydronephrosis. No renal calculi. Too small to characterize and/or benign appearing renal lesions are noted. Retroperitoneum: No retroperitoneal adenopathy. Vascular: No aneurysm. Bowel: No significant focal abnormality. Normal appendix. Peritoneum: No ascites or free air. Small fat containing umbilical hernia. Bladder: Grossly unremarkable. Reproductive: No adnexal masses. Hysterectomy Bones: No acute fracture. Multilevel degenerative changes are present in the spine. These are mild. Other: n/a IMPRESSION: No acute intra-abdominal or pelvic finding. Normal appendix.
[2022-04-05 19:02] LABS: Urine Blood Negative (Negative); Urine Glucose Negative (Negative); Urine Protein Negative (Negative); Urine Specific Gravity 1.015 (1.005-1.030)
--- NOTE | 2022-04-05 19:35 | ER ---
Nurse's Notes [facility] Name: Tresa Zuniga Age: 71 yrs Sex: Female : 1950 Arrival Date: 04/05/2022 Time: 16:40 Bed 4 Private MD: Diagnosis: Abdominal tenderness;Other abnormal findings in urine Presentation: 04/05 16:56 Chief complaint: Patient states: rectal discomfort and pressure x2 weeks, worse over kb3 the last 3 days. Also reporting right flank pain that wraps around to right lower quadrant that began 3 days ago. Denies fever, N/V, urinary symptoms, diarrhea, constipation. Coronavirus screen: Vaccine status: Patient reports receiving the 2nd dose of the covid vaccine. Client denies travel out of the [place] in the last 14 days. Ebola Screen: Patient negative for fever greater than or equal to 101.5 degrees Fahrenheit, and additional compatible Ebola Virus Disease symptoms Patient denies exposure to infectious person. Patient denies travel to an Ebola-affected area in the 21 days before illness onset. Initial Sepsis Screen: Does the patient meet any 2 criteria? No. Patient's initial sepsis screen is negative. Does the patient have a suspected source of infection? No. Patient's initial sepsis screen is negative. Risk Assessment: Do you want to hurt yourself or someone else? Patient reports no desire to harm self or others. Onset of symptoms was March 22, 2022. 16:56 Method Of Arrival: Ambulatory 3 16:56 Acuity: HOLLAND 3 kb3 Triage Assessment: 17:01 General: Appears in no apparent distress. Behavior is calm, cooperative. GI: Reports kb3 lower abdominal pain, bloating, normal bowel habits, Patient currently denies bloody stool, constipation, diarrhea, nausea, vomiting. : Reports pain in right flank(s), lower quadrant(s) Denies burning with urination, inability to void, incontinence, urinary frequency, urgency. Historical: - Allergies: 17:01 No Known Allergies; kb3 - Home Meds: 17:01 Allopurinol Oral [Active]; losartan Oral [Active]; Vesicare Oral [Active]; kb3 - PMHx: 17:01 Hypertension; Kidney stones; Hemorrhoids; kb3 - PSHx: 17:01 section; Total abdominal hysterectomy; Lithotripsy; kb3 - Immunization history:: Adult Immunizations up to date, Client reports receiving the 2nd dose of the Covid vaccine, Last tetanus immunization: up to date. - Social history:: Smoking status: Patient denies any tobacco usage or history of. Screenin:58 Abuse screen: Denies threats or abuse. Nutritional screening: No deficits noted. kr3 Tuberculosis screening: No symptoms or risk factors identified. Fall Risk None identified. Assessment: 16:55 General: Appears in no apparent distress. comfortable, Behavior is calm, cooperative, kr3 appropriate for age. Pain: Complains of pain in left mid back and right mid back Pain radiates to abdomen. Neuro: Level of Consciousness is awake, alert, obeys commands, Oriented to person, place, time. Cardiovascular: Patient's skin is warm and dry. Respiratory: Airway is patent Respiratory effort is even, unlabored, Respiratory pattern is regular, symmetrical. GI: Abdomen is round non-distended. : No signs and/or symptoms were reported regarding the genitourinary system. EENT: No signs and/or symptoms were reported regarding the EENT system. Derm: No deficits noted. Musculoskeletal: Circulation, motion, and sensation intact. Range of motion: intact in all extremities. 19:15 General: Appears in no apparent distress. comfortable, well groomed, well developed, kr3 Behavior is calm, cooperative, appropriate for age, quiet. 19:15 Pain: Complains of pain in right lower quadrant and right flank pain of 2. Neuro: Level kr3 of Consciousness is awake, obeys commands, Oriented to person, place, time. Cardiovascular: No deficits noted. Respiratory: No deficits noted. Airway is patent Respiratory effort is even, unlabored, Respiratory pattern is regular, symmetrical. GI: Abdomen is round non-distended, Bowel sounds present X 4 quads. Abd is soft Abd is non tender X 4 quads. : No deficits noted. No signs and/or symptoms were reported regarding the genitourinary system. EENT: No signs and/or symptoms were reported regarding the EENT system. Vital Signs: 16:56 BP 144 / 78; Pulse 74; Resp 20; Temp 98.2; Pulse Ox 96% ; Weight 107.95 kg; Height 5 kb3 ft. 11 in. (180.34 cm); Pain 6/10; 19:54 BP 146 / 71; Pulse 62; Resp 18; Temp 98.2; Pulse Ox 99% on R/A; Pain 2/10; kr3 16:56 Body Mass Index 33.19 (107.95 kg, 180.34 cm) kb3 ED Course: 16:40 Patient arrived in ED. as 16:46 Giana NewbyKELLY is [facility]. snw 16:46 Eusebio Navarro DO is Attending Physician. snw 16:49 Yane Rose, RN is Primary Nurse. kr3 17:01 Triage completed. kb3 17:01 Arm band placed on right wrist. Patient placed in an exam room, on a stretcher. kb3 17:23 Inserted saline lock: 20 gauge in right antecubital area, using aseptic technique. vg1 Blood collected. 18:45 Abdomen In Process Unspecified. EDMS 19:15 Patient has correct armband on for positive identification. Bed in low position. Call kr3 light in reach. 19:30 Primary Nurse role handed off by Yane Rose, ZAHEER mw2 19:36 Yane Rose RN is Primary Nurse. kr3 19:58 No provider procedures requiring assistance completed. IV discontinued, intact, kr3 bleeding controlled, No redness/swelling at site. Pressure dressing applied. Administered Medications: 17:25 Drug: NS 0.9% 1000 ml Route: IV; Rate: 125 ml/hr; Site: right antecubital; vg1 19:53 Follow up: Response: No adverse reaction; IV Status: Completed infusion; IV Intake: kr3 300ml 17:26 Drug: Ketorolac 30 mg Route: IVP; Site: right antecubital; vg1 19:00 Follow up: Response: No adverse reaction kr3 19:42 Drug: Rocephin (cefTRIAXone) 1 grams Route: IV; Rate: calculated rate; Site: right kr3 antecubital; 19:52 Follow up: Response: No adverse reaction; IV Status: Completed infusion; IV Intake: [id number] 19:42 Drug: Valium (diazepam) 2 mg Route: IVP; Site: right antecubital; kr3 19:52 Follow up: Response: No adverse reaction kr3 Medication: 19:59 VIS not applicable for this client. kr3 Intake: 19:52 IV: 10ml; Total: 10ml. kr3 19:53 IV: 300ml; Total: 310ml. kr3 Outcome: 19:34 Discharge ordered by . snw 19:59 Discharged to home ambulatory, with family. kr3 19:59 Condition: improved 19:59 Discharge instructions given to patient, family, Instructed on discharge instructions, follow up and referral plans. medication usage, Demonstrated understanding of instructions, follow-up care, medications, Prescriptions given X 3. 19:59 Patient left the ED. kr3 Signatures: Dispatcher [employer] EDMS Giana Newby, ANDREW-C CURRICULUM DESIGNER-Zabrina Hernandez MyKena mw2 Janie Whitehead, RN RN vg1 Yane Rose, RN RN kr3 Joelle Spann, RN RN kb3
--- NOTE | 2022-04-05 19:35 | EDPHYS ---
Physician Documentation [facility] Name: Tresa Zuniga Age: 71 yrs Sex: Female : 1950 Arrival Date: 04/05/2022 Time: 16:40 Bed 4 Private MD: ED Physician Eusebio Navarro HPI: 04/05 17:11 This 71 yrs old Female presents to ER via Ambulatory with complaints of Abdominal Pain, snw Back Pain. 17:11 The patient presents with abdominal pain abdominal distention in the right lower snw quadrant. Onset: The symptoms/episode began/occurred 1 week(s) ago, and became worse today, and became persistent. The symptoms radiate to right back. Associated signs and symptoms: none. The symptoms are described as steady, pressure. Severity of pain: At its worst the pain was moderate. The patient has experienced similar episodes in the past, but today's symptoms are worse, lasting longer. The patient has not recently seen a physician. Historical: - Allergies: 17:01 No Known Allergies; kb3 - Home Meds: 17:01 Allopurinol Oral [Active]; losartan Oral [Active]; Vesicare Oral [Active]; kb3 - PMHx: 17:01 Hypertension; Kidney stones; Hemorrhoids; kb3 - PSHx: 17:01 section; Total abdominal hysterectomy; Lithotripsy; kb3 - Immunization history:: Adult Immunizations up to date, Client reports receiving the 2nd dose of the Covid vaccine, Last tetanus immunization: up to date. - Social history:: Smoking status: Patient denies any tobacco usage or history of. ROS: 17:09 Constitutional: Negative for fever, chills, and weight loss, Eyes: Negative for injury, snw pain, redness, and discharge, ENT: Negative for injury, pain, and discharge, Neck: Negative for injury, pain, and swelling, Cardiovascular: Negative for chest pain, palpitations, and edema, Respiratory: Negative for shortness of breath, cough, wheezing, and pleuritic chest pain, : Negative for injury, bleeding, discharge, and swelling, MS/Extremity: Negative for injury and deformity, Skin: Negative for injury, rash, and discoloration, Neuro: Negative for headache, weakness, numbness, tingling, and seizure. 17:09 Abdomen/GI: Positive for abdominal distension, rectal pressure, no bleeding, regular bowel movements. 17:09 Back: Positive for flank pain, on the right, of the right mid back and right low back. Exam: 17:08 Constitutional: This is a well developed, well nourished patient who is awake, alert, snw and in no acute distress. Head/Face: Normocephalic, atraumatic. Eyes: Pupils equal round and reactive to light, extra-ocular motions intact. Lids and lashes normal. Conjunctiva and sclera are non-icteric and not injected. Cornea within normal limits. Periorbital areas with no swelling, redness, or edema. ENT: Nares patent. No nasal discharge, no septal abnormalities noted. Tympanic membranes are normal and external auditory canals are clear. Oropharynx with no redness, swelling, or masses, exudates, or evidence of obstruction, uvula midline. Mucous membranes moist. Neck: Trachea midline, no thyromegaly or masses palpated, and no cervical lymphadenopathy. Supple, full range of motion without nuchal rigidity, or vertebral point tenderness. No Meningismus. Chest/axilla: Normal chest wall appearance and motion. Nontender with no deformity. No lesions are appreciated. Cardiovascular: Regular rate and rhythm with a normal S1 and S2. No gallops, murmurs, or rubs. Normal PMI, no JVD. No pulse deficits. Respiratory: Lungs have equal breath sounds bilaterally, clear to auscultation and percussion. No rales, rhonchi or wheezes noted. No increased work of breathing, no retractions or nasal flaring. Back: No spinal tenderness. No costovertebral tenderness. Full range of motion. Skin: Warm, dry with normal turgor. Normal color with no rashes, no lesions, and no evidence of cellulitis. MS/ Extremity: Pulses equal, no cyanosis. Neurovascular intact. Full, normal range of motion. Neuro: Awake and alert, GCS 15, oriented to person, place, time, and situation. Cranial nerves II-XII grossly intact. Motor strength 5/5 in all extremities. Sensory grossly intact. Cerebellar exam normal. Normal gait. Psych: Awake, alert, with orientation to person, place and time. Behavior, mood, and affect are within normal limits. 17:08 Abdomen/GI: Inspection: distension, Bowel sounds: normal, Palpation: mild abdominal tenderness, in the posterior aspect of right lateral abdomen and right lower quadrant. Vital Signs: 16:56 BP 144 / 78; Pulse 74; Resp 20; Temp 98.2; Pulse Ox 96% ; Weight 107.95 kg; Height 5 kb3 ft. 11 in. (180.34 cm); Pain 6/10; 19:54 BP 146 / 71; Pulse 62; Resp 18; Temp 98.2; Pulse Ox 99% on R/A; Pain 2/10; kr3 16:56 Body Mass Index 33.19 (107.95 kg, 180.34 cm) kb3 MDM: 16:57 Patient medically screened. snw 19:37 Data reviewed: vital signs, nurses notes. Data interpreted: Pulse oximetry: on room air snw is 96 %. Interpretation: acceptable. Counseling: I had a detailed discussion with the patient and/or guardian regarding: the historical points, exam findings, and any diagnostic results supporting the discharge/admit diagnosis, lab results, radiology results, the need for outpatient follow up, to return to the emergency department if symptoms worsen or persist or if there are any questions or concerns that arise at home. Response to treatment: the patient's symptoms have mildly improved after treatment. Special discussion: Based on the patient's Hx, exam, and Dx evaluation, there is no indication for emergent surgery or inpatient Tx. It is understood by the patient/guardian that if the Sx's persist or worsen they need to return immediately for re-evaluation. I have referred the patient to see his PCP for further evaluation of high blood pressure. Based on the history and exam findings, there is no indication for further emergent testing or inpatient evaluation. I discussed with the patient/guardian the need to see the primary care provider for further evaluation of the symptoms. 04/05 17:06 Order name: CBC with Diff; Complete Time: 17:40 snw 04/05 17:06 Order name: CMP; Complete Time: 18:23 snw 04/05 17:06 Order name: Lipase; Complete Time: 18:23 snw 04/05 19:03 Order name: Urine Dipstick-Ancillary; Complete Time: 19:03 EDMS 04/05 19:23 Order name: Urine Culture snw 04/05 17:07 Order name: IV Saline Lock; Complete Time: 17:29 snw 04/05 17:07 Order name: Labs collected and sent; Complete Time: 17:29 snw 04/05 17:13 Order name: Abdomen ; Complete Time: 19:02 EDMS Administered Medications: 17:25 Drug: NS 0.9% 1000 ml Route: IV; Rate: 125 ml/hr; Site: right antecubital; vg1 19:53 Follow up: Response: No adverse reaction; IV Status: Completed infusion; IV Intake: kr3 300ml 17:26 Drug: Ketorolac 30 mg Route: IVP; Site: right antecubital; vg1 19:00 Follow up: Response: No adverse reaction kr3 19:42 Drug: Rocephin (cefTRIAXone) 1 grams Route: IV; Rate: calculated rate; Site: right kr3 antecubital; 19:52 Follow up: Response: No adverse reaction; IV Status: Completed infusion; IV Intake: [id number] 19:42 Drug: Valium (diazepam) 2 mg Route: IVP; Site: right antecubital; kr3 19:52 Follow up: Response: No adverse reaction kr3 Disposition: 18:07 Co-signature as Attending Physician, Eusebio COTA was immediately available onsite ms3 in the emergency department for consultation in the care of the patient. Disposition Summary: 04/05/22 19:34 Discharge Ordered Location: Home snw Condition: Stable snw Diagnosis - Abdominal tenderness snw - Other abnormal findings in urine snw Followup: snw - With: Emergency Department - When: As needed - Reason: Worsening of condition Followup: snw - With: Private Physician - When: 2 - 3 days - Reason: Recheck today's complaints, Continuance of care, Re-evaluation by your physician Discharge Instructions: - Discharge Summary Sheet snw - Abdominal Pain, Adult snw - Abdominal Bloating snw - Urine Culture and Sensitivity Testing snw Forms: - Medication Reconciliation Form snw - Thank You Letter snw - Antibiotic Education snw - Prescription Opioid Use snw Prescriptions: - Augmentin 875-125 mg Oral Tablet - take 1 tablet by ORAL route every 12 hours for 10 days; 20 tablet; Refills: 0, snw Product Selection Permitted - Mobic 7.5 mg Oral Tablet - take 1 tablet by ORAL route once daily take with food; 20 tablet; Refills: 0, snw Product Selection Permitted - orphenadrine citrate 100 mg Oral Tablet Sustained Release - take 1 tablet by ORAL route 2 times per day As needed; 20 tablet; Refills: 0, snw Product Selection Permitted Signatures: Dispatcher [employer] Giana Brody FNP-C INSURANCE ANALYST-[employer] Janie Whitehead, RN RN vg1 Eusebio Navarro DO DO ms3 Yane Rose RN RN kr3 Joelle Spann RN RN kb3
[2022-04-05] MEDS ORDERED: CEFTRIAXONE 1000 MG/VIAL ONE (19:41)
[2022-04-05] MEDS ORDERED: DIAZEPAM 10 MG/2 ML INJ SYRINGE ONE (19:41)
[2022-04-05 20:15] VITALS: TEMP 98.2
[2022-04-05 20:21] VITALS: BP 146/71; O2SAT 99
== END 2022-04-05 19:59 | disposition home or self-care (01) ==
LOC: ER 16:38
DX: R10.813 Right lower quadrant abdominal tenderness (principal); R82.998 Other abnormal findings in urine; I10 Essential (primary) hypertension; Z87.442 Personal history of urinary calculi
CPT/HCPCS: 96361; 87088; 85025; 87086; 36415; 81003; 83690; 80053; 74177; 96375; 96374; 99284; Q9967; J3360; J7030